=== PATIENT | female | born 1970 | race African-American/Black ===

== ENCOUNTER → 2017-10-03 | Outpatient (CLI) | payer MEDICARE | LOC: MHCPAIN 12:45 | DX: G89.29 Other chronic pain (principal); M47.817 Spondylosis without myelopathy or radiculopathy, lumbosacral region; M54.16 Radiculopathy, lumbar region; M53.3 Sacrococcygeal disorders, not elsewhere classified; M48.061 Spinal stenosis, lumbar region without neurogenic claudication | CPT/HCPCS: G0463 ==

== ENCOUNTER → 2017-11-21 | Outpatient (CLI) | payer MEDICARE | LOC: MHCPAIN 12:51 | DX: G89.29 Other chronic pain (principal); M47.817 Spondylosis without myelopathy or radiculopathy, lumbosacral region; M54.16 Radiculopathy, lumbar region; M53.3 Sacrococcygeal disorders, not elsewhere classified | CPT/HCPCS: G0463 ==

== ENCOUNTER → 2017-12-21 | Outpatient (CLI) | payer MEDICARE | LOC: MHCPAIN 11:20 | DX: G89.29 Other chronic pain (principal); M47.817 Spondylosis without myelopathy or radiculopathy, lumbosacral region; M54.16 Radiculopathy, lumbar region; M53.3 Sacrococcygeal disorders, not elsewhere classified | CPT/HCPCS: G0463 ==

== ENCOUNTER → 2018-01-11 | Outpatient (CLI) | payer MEDICARE | LOC: MHCPAIN 10:06 | DX: G89.29 Other chronic pain (principal); M47.817 Spondylosis without myelopathy or radiculopathy, lumbosacral region; M54.16 Radiculopathy, lumbar region; M53.3 Sacrococcygeal disorders, not elsewhere classified | CPT/HCPCS: G0463 ==

== ENCOUNTER 2019-10-24 12:04 | Inpatient (IN) | payer MEDICARE ==
[~2019-10-24] VITALS: Ht 167.6 cm; Wt 100.1 kg
[2019-10-24] MEDS ORDERED: PERCOCET 325 MG1 TAB PO (12:11)
[2019-10-24] MEDS ORDERED: NOVLOG SQ (12:11)
[2019-10-24] MEDS ORDERED: TOPROL XL 25MG25 MG PO (12:12)
[2019-10-24] MEDS ORDERED: NEURONTIN600 MG/TAB PO (12:12)
[2019-10-24] MEDS ORDERED: ZESTRIL 20MG TA20 MG PO (12:12)
[2019-10-24 12:41] LABS: BASO # 0.1 (0.0-0.2); BASO % 0.5 % (0.0-2.0); EOS # 0.1 (0.0-0.7); EOS % 0.4 % (0-4.0); GRAN # 16.6 (1.4-6.5); GRAN % 83.1 % (42.2-75.2); LYMPH # 1.8 (1.2-3.4); LYMPH % 9.2 % (20.0-51.0); MEAN CELL VOLUME 89 fl (80.0-100.0); MEAN CORPUSCULAR HEMOGLOBIN 29 pg (27.0-31.0); MEAN CORPUSCULAR HGB CONC 32 g/dl (33.0-37.0); MEAN PLATELET VOLUME 10.4 fl (7.4-10.4); MONO # 1.2 (0.1-0.6); PLATELET COUNT 318 K/mm3 (130-400); RED BLOOD COUNT 3.86 M/mm3 (4.10-5.30); REDCELL DISTRIBUTION WIDTH-CV 16.1 % (11.5-14.5)
[2019-10-24 12:47] LABS: HEMATOCRIT 34.4 % (37.0-47.0)
[2019-10-24 12:50] LABS: PROTHROMBIN TIME 10.6 SECONDS (9.7-12.8)
[2019-10-24 12:53] LABS: PARTIAL THROMBOPLASTIN TIME 36.9 SECONDS (26.0-37.0)
[2019-10-24 12:54] LABS: ALBUMIN 3.6 gm/dL (3.5-5.0); BILIRUBIN,TOTAL 0.9 mg/dL (0.0-1.0); C-REACTIVE PROTEIN 4.5 mg/dL (0.0-0.9); CALCIUM 8.6 mg/dL (8.4-10.2); CREATININE, serum 0.99 (0.52-1.25); POTASSIUM 4.5 mmol/L (3.4-5.0); TOTAL PROTEIN 7.1 gm/dL (6.4-8.2)
[2019-10-24 14:30] LABS: TROPONIN-I 0.022 ng/mL (0.000-0.035)
[2019-10-24 14:48] LABS: THYROID STIMULATING HORMONE 0.912 uIU/mL (0.465-4.680)
[2019-10-24 15:47] LABS: COLLECTION METHOD CLEAN CATCH
[2019-10-24 16:13] LABS: PH 5 (5-8); SQUAMOUS EPITHELIAL None Seen /hpf; URINE APPEARANCE Clear; URINE BACTERIA None Seen /hpf; URINE BILIRUBIN Negative (NEGATIVE); URINE BLOOD 1+ (NEGATIVE); URINE COLOR Colorless; URINE GLUCOSE Negative (NEGATIVE); URINE KETONE Negative (NEGATIVE); URINE LEUKOCYTE ESTERASE Negative (NEGATIVE); URINE NITRATE Negative (NEGATIVE); URINE PROTEIN(semi-quant) 1+ (NEGATIVE); URINE RBC 0-2 /hpf; URINE UROBILINOGEN Negative (NEGATIVE)
--- NOTE | 2019-10-24 19:27 | NUR ---
patient said she arrived in the ED with edema on Bilateral lower extremity. complained of chronic back pain at 8/10 score. patient said she takes porcocet for the back pain. patient have a insulin pump for diabetes. Lung sound have wheezing in all lung field. right toe have a callus/unstagable ulcer. Called Dr Ankit Roman for Pulmonolist consult. said he will see patient tomorrow morning. Attempted to consult Dr Bergeron for Cardiology consult, no success. Night Nurse, KAYLEIGH Wu was informed of the attempt. Patient document from ER was put in patient chart. patient on telemery. Medication reconciliation completed.
[2019-10-24 19:40] VITALS: BP 182/79; PULSE 92; TEMP 98.5
--- NOTE | 2019-10-24 20:30 | NUR ---
NOTIFIED DR. ROSALES IN REFERENCE TO PAIN MEDICATION. RECEIVED ORDERS TO CONTINUE HOME PERCOCET MEDICATION (PERCOCET 10/325MG PO EVERY 4 HOURS PRN FOR PAIN).
--- NOTE | 2019-10-24 21:09 | NUR ---
PT IN BED WITH HOB ELEVATED TO 45 DEGREE ANGLE. PT HAS C/O PAIN IN LOWER BACK, GAVE PERCOCET FOR PAIN. PT HAS AN ULCER/CALUS LOCATED AT THE BOTTOM OF BOTH FEET. RIGHT FOOT UNDER GREAT TOE AND LEFT FOOT ON OUTER SIDE OF BOTTOM. PT SLEEPING AT THIS TIME. NO FURTHER NEEDS CALL LIGHT WITHIN REACH.
--- NOTE | 2019-10-24 21:49 | NUR ---
NOTIFIED DR. ROSALES IN REFERENCE TO PT FEELING NAUSEAD. RECEIVED ORDERS FOR ZOFRAN 4MG IV EVERY 6 HOURS PRN FOR NAUSEA. ALSO ADDRESSED INSULIN PUMP, AND DR. ROSALES ADVISED JUST GO WITH THE SLIDING SCALE FOR NOW AND HE WILL REVIEW HER INSULIN PUMP IN THE MORNING.
[2019-10-25] VITALS (10 sets, daily range): BP systolic 150–192; BP diastolic 77–93; PULSE 84–95; TEMP 98.2–98.7
--- NOTE | 2019-10-25 05:14 | NUR ---
PT RECEIVED PAIN MEDICATION AT BEGINNING OF SHIFT AND ABOUT 30 TO 40 MINUTES LATER PT FELT NAUSEAD. RECEIVED AN ORDER FOR ZOFRAN FROM DR. ROSALES. PT SLEPT WELL AFTER RECEIVING THE ZOFRAN, UNTIL ABOUT 0300. PT WOKE UP WITH NAUSEA AND VOMITING. (VOMIT LOOK MORE LIKE SALIVA) ADVISED PT IT WAS TOO EARLY TO GIVE HER ZOFRAN AND THAT IT WAS DUE IN ABOUT AN HOUR. RETURNED IN AN HOUR AND PT WAS SLEEPING AND SOFTLY SNORING. PT WOKE UP ABOUT 45 MINUTES LATER AND GAVE HER THE ZOFRAN. PT AFTER ABOUT 30 MINUTES STILL FELT NAUSEAD. PT DENIED ANY PAIN. CALL LIGHT WITHIN REACH.
--- NOTE | 2019-10-25 05:41 | NUR ---
NOTIFIED DR. ROSALES IN REFERENCE TO PLACING TIJERINA CATHETER. ADVISED THAT ORDERS SAY, "MAY PLACE EXTERNAL FEMALE CATHETER." PT IS WANTING AN INDEWELLING CATHETER. DR. ROSALES GAVE ORDERS TO CHANGE TO INDEWELLING CATHETER.
--- NOTE | 2019-10-25 06:58 | NUR ---
PLACED TIJERINA CATHETER WITH 16F AND 10CC IN BALLOON. PT TOLERATED WELL. PT ACCIDENTLY KNOCKED OUT HER IV AND WAS REPLACED WITH A 20G IN HER LEFT FOREARM, BY DEYSI VICTOR.
[2019-10-25 07:46] LABS: BASO # 0.1 (0.0-0.2); BASO % 0.4 % (0.0-2.0); EOS # 0.1 (0.0-0.7); EOS % 0.3 % (0-4.0); GRAN # 13.5 (1.4-6.5); GRAN % 83.5 % (42.2-75.2); HEMOGLOBIN 10.3 g/dl (12.5-16.0); LYMPH # 1.6 (1.2-3.4); LYMPH % 9.7 % (20.0-51.0); MEAN CELL VOLUME 88 fl (80.0-100.0); MEAN CORPUSCULAR HEMOGLOBIN 29 pg (27.0-31.0); MEAN CORPUSCULAR HGB CONC 32 g/dl (33.0-37.0); MEAN PLATELET VOLUME 10.4 fl (7.4-10.4); MONO # 0.9 (0.1-0.6); MONO % 5.5 % (1.7-9.3); PLATELET COUNT 304 K/mm3 (130-400); RED BLOOD COUNT 3.62 M/mm3 (4.10-5.30)
[2019-10-25 07:47] LABS: HEMATOCRIT 31.8 % (37.0-47.0)
[2019-10-25 07:57] LABS: ALBUMIN 3.2 gm/dL (3.5-5.0); BILIRUBIN,TOTAL 0.8 mg/dL (0.0-1.0); CALCIUM 8.3 mg/dL (8.4-10.2); CREATININE, serum 1.05 (0.52-1.25); MAGNESIUM 1.9 mg/dL (1.6-2.3); TOTAL PROTEIN 6.4 gm/dL (6.4-8.2)
--- NOTE | 2019-10-25 16:21 | NUR ---
Body Work Auto Trimmer met with patient to discuss discharge planning. Patient lives in [place] with her , Mohan (ph#[phone]) and a couple temporary roommates. Patient expressed frustration because her roommates were supposed to bring in a phone avionics systems engineer so she can call her . Patient is distressed because her is sick and may be in the hospital. Patient is unsure which hosptial he is at. SW obtained a avionics systems engineer from the community relations police lieutenant and provided it to patient to borrow. Patient goes to the [facility] for primary care and obtains medications from [facility] in [place] with no difficulties. Patient does not use any DME and is independent with ADLS. Patient plans to return home upon discharge. SW to continue to follow as needed.
--- NOTE | 2019-10-25 19:45 | NUR ---
Patient is alert and oriented. complained of nausea and pain. administered zofran and porcocet. BP>180, Administered hydralizine X2. Exercise test scheduled for tomorrow. 2+ edema on ble.
--- NOTE | 2019-10-25 21:14 | NUR ---
Report rcvd from KAYLEIGH Blake. Pt in bed nauseated. Pt rcvd cezar recently. Pain is 10/10. BP high, hydralazine administered per protocol. Pain medication given by KAYLEIGH Blake. Pt assessment completed.
[2019-10-26] VITALS (7 sets, daily range): BP systolic 148–183; BP diastolic 69–102; PULSE 84–104; TEMP 98.6–99.1
--- NOTE | 2019-10-26 07:00 | NUR ---
Report received from KAYLEIGH Morgan. pT in bed resting without needs, will continue to monitor.
--- NOTE | 2019-10-26 07:21 | NUR ---
Pt had an uneventful night. Pt has been NPO after midnight d/t Lexiscan today. Pt had some nausea and some pain, both relieved by medications.
--- NOTE | 2019-10-26 09:00 | NUR ---
Pt anticipating lexiscan today, very anxious about it but ready to complete. Denies pain anywhere, states feet are "improved but still very swollen". REsting in bed, catheter to DD in bag at side of bed is yellow and clear. Lungs are diminished on right side and at base on L side. Will continue to monitor.
[2019-10-26 11:08] LABS: BASO % 0.2 % (0.0-2.0); EOS % 0.2 % (0-4.0); GRAN # 15.3 (1.4-6.5); GRAN % 87.3 % (42.2-75.2); HEMOGLOBIN 11.2 g/dl (12.5-16.0); LYMPH # 1.3 (1.2-3.4); LYMPH % 7.7 % (20.0-51.0); MEAN CELL VOLUME 88 fl (80.0-100.0); MEAN CORPUSCULAR HEMOGLOBIN 28 pg (27.0-31.0); MEAN CORPUSCULAR HGB CONC 32 g/dl (33.0-37.0); MEAN PLATELET VOLUME 10.2 fl (7.4-10.4); MONO # 0.7 (0.1-0.6); MONO % 4.1 % (1.7-9.3); PLATELET COUNT 371 K/mm3 (130-400); RED BLOOD COUNT 4.04 M/mm3 (4.10-5.30)
[2019-10-26 11:09] LABS: HEMATOCRIT 35.4 % (37.0-47.0)
[2019-10-26 11:21] LABS: CALCIUM 8.6 mg/dL (8.4-10.2); CREATININE, serum 1.31 (0.52-1.25); MAGNESIUM 1.8 mg/dL (1.6-2.3); POTASSIUM 3.5 mmol/L (3.4-5.0)
--- NOTE | 2019-10-26 15:46 | NUR ---
Slot Machine Mechanic met with patient who will discharge today. Patient states she has secured a ride home. SW provided list of food pantries in [place] as information systems operator reported patient was interested in obtaining information. Patient reports she has already been in contact with the [facility] and is having the food picked up today. No additional needs at this time.
[2019-10-26] MEDS ORDERED: ZITHROMAX500 M2 PO (15:52)
[2019-10-26] MEDS ORDERED: ZESTRIL40 MG PO (15:53)
[2019-10-26] MEDS ORDERED: TOPROL XL 50MG50 MG PO (15:53)
[2019-10-26] MEDS ORDERED: PREDNISONE20 MG PO (15:53)
[2019-10-26] MEDS ORDERED: PROAIR HFA0.09 MG/AC IH (15:54)
[2019-10-26] MEDS ORDERED: DEMADEX 20MG20 M1 PO (15:59)
--- NOTE | 2019-10-26 17:32 | NUR ---
Dishcarge teaching completed at this time. Pt received dishcarge packet, reviewed new scripts and f/u appointments that she needs to get scheduled tomorrow. INT dc'd, tip intact. Pt called ride, will call when ride arrives and leave with all bleongings. Will take out via w/c when ride here, will leave with all belongings. Criteria met
[2019-10-29 13:33] LABS: ANGIOTENSIN CONVERTING ENZYME 11 U/L (16 - 85)
== END 2019-10-26 17:30 | disposition home or self-care (01) | DRG 291 ==
LOC: COL.ER 12:04 → MEDICAL 14:06
PROVIDERS: Emergency Medicine; Internal Medicine; Internal Medicine Pulmonary Disease; Physician Assistant; ADMIT Hospitalist
DX: I11.0 Hypertensive heart disease with heart failure (principal); I50.31 Acute diastolic (congestive) heart failure; N17.9 Acute kidney failure, unspecified; J45.909 Unspecified asthma, uncomplicated; Z20.828 Contact with and (suspected) exposure to other viral communicable diseases; G89.29 Other chronic pain; M54.9 Dorsalgia, unspecified; E11.40 Type 2 diabetes mellitus with diabetic neuropathy, unspecified; R91.1 Solitary pulmonary nodule; D64.9 Anemia, unspecified; I70.0 Atherosclerosis of aorta; I16.0 Hypertensive urgency; E66.01 Morbid (severe) obesity due to excess calories; G47.33 Obstructive sleep apnea (adult) (pediatric); R59.0 Localized enlarged lymph nodes; I27.20 Pulmonary hypertension, unspecified; D72.829 Elevated white blood cell count, unspecified; E11.65 Type 2 diabetes mellitus with hyperglycemia; T38.0X5A Adverse effect of glucocorticoids and synthetic analogues, initial encounter; Z87.891 Personal history of nicotine dependence; Z87.01 Personal history of pneumonia (recurrent); I25.2 Old myocardial infarction; Z79.4 Long term (current) use of insulin
CPT/HCPCS: 99222-AI; 99233-AI; 99239; A9500; J0360; J1650; J1815; J1940; J2405; J2785; J3010; J7512; Q9967